=== PATIENT | male | born 1960 | race Asian ===

== ENCOUNTER 2018-05-16 18:14 | Inpatient (IN) ==
--- NOTE | 2018-05-16 18:57 | XRay Report ---
XR chest 1V portable CLINICAL HISTORY: weakness dyspnea COMPARISON STUDY: No previous studies for comparison. FINDINGS: The bones soft tissues and hemidiaphragms are normal. The cardiomediastinal silhouette is n ormal. The lungs are clear. The pulmonary vasculature is normal. IMPRESSION: Negative chest. The above report was generated using voice recognition software. It may contain grammatical, syntax or spelling errors. Electronically signed by: Erasmo Fiore M.D. 05/16/2018 6:56 PM
[2018-05-16 19:27] LABS: Basophils # (auto) 0.01 K/uL (0-0.2); Basophils % (auto) 0.2 %; Eosinophils # (auto) 0.03 K/uL (0-0.5); Eosinophils % (auto) 0.7 %; Hematocrit (blood only) 40.6 % (42-52); Hemoglobin 14.5 g/dL (14.0-18.0); Immature Granulocytes # (auto) 0.01 K/uL (0.00-0.02); Immature Granulocytes % (auto) 0.2 %; Lymphocytes % (auto) 26.6 %; Mean Corpuscular Hgb Conc 35.7 g/dL (32-36); Mean Corpuscular Volume 86.8 fL (80-100); Mean Platelet Volume 9.3 fL (7.4-10.4); Monocytes # (auto) 0.23 K/uL (0.11-0.59); Monocytes % (auto) 5.6 %; Neutrophils # (auto) 2.75 K/uL (1.4-6.5); Neutrophils % (auto) 66.7 %; Platelet Count 164 K/uL (130-400); RDW Coefficient of Variation 12.2 % (11.5-14.5); RDW Standard Deviation 38.9 fL (36.4-46.3); Red Blood Count 4.68 M/uL (4.7-6.1); White Blood Count 4.13 K/uL (4.8-10.8)
--- NOTE | 2018-05-16 19:32 | CT Scan Report ---
CT head/brain wo con CT DOSE: 537.48 mGy.cm HISTORY: Mental status change Stroke evaluation TECHNIQUE: Multiaxial CT images of the head were performed without the use of intravenous contrast. A dose lowering technique was utilized adhering to the principles of ALARA. Comparison: None. Findings: The paranasal sinuses and mastoid air cells are clear. The calvarium and skull base are int act. The ventricles and sulci are within normal limits. There is no mass, hematoma, midline shift, or acute infarct. Impression: No acute intracranial abnormality. The above report was generated using voice recognition software. It may contain grammatical, syntax or spelling errors. Electronically signed by: Erasmo Fiore M.D. 05/16/2018 7:31 PM
[2018-05-16 19:38] LABS: Partial Thromboplastin Time 26.1 Seconds (21.0-31.0); Prothrombin Time 10.3 Seconds (9.0-12.0)
[2018-05-16 19:47] LABS: Alanine Aminotransferase 34 U/L (12-78); Albumin Level 3.7 gm/dl (3.4-5.0); Aspartate Aminotransferase 20 U/L (15-37); BUN Creatinine Ratio 27.9 (10-20); Blood Urea Nitrogen 24 mg/dl (7-18); Calcium 8.7 mg/dl (8.5-10.1); Carbon Dioxide 30 mmol/L (21-32); Chloride 101 mmol/L (98-107); Creatinine Clr Calc Pharmacy 81.4 ml/min; Est GFR (African American) 110.8; Est GFR (Non-African American) 95.6; Glucose 151 mg/dl (70-99); Potassium 3.5 mmol/L (3.5-5.1); Sodium 137 mmol/L (136-145)
[2018-05-16 19:52] LABS: Albumin Globulin Ratio 1.1 (0.9-2); Alkaline Phosphatase 102 U/L (45-117); Bilirubin,Total 1.1 mg/dl (0.2-1); Globulin 3.5 gm/dl (2.5-4.0); Total Protein 7.2 gm/dl (6.4-8.2); Troponin I < 0.015 ng/ml (0-0.045)
--- NOTE | 2018-05-16 20:12 | Emergency Department Note ---
Entered by Brionna Espinal acting as a scribe for History of Present Illness General Chief complaint: Stroke/CVA Symptoms Stated complaint: SLURRED SPEECH, PARALYSIS,NUMBNESS LEFT ARM Source: talent assistant History of Present Illness Onset (ago): day(s) 3 Location: left Pain Consistency: + constant Quality: + other (weakness) Associated symptoms: + other (left hand numbness); no headaches The patient is a 58 year old male who presents to the Emergency Room with complaints of constant left sided weakness that started 3 days ago. The patient reports the left side of his body feels weak and his left hand feels numb. He also complains of problems speaking. He states he wants to say something but is unable to speak. He denies any headache. The patient reports he had similar symptoms a year ago but they were not the same as today. Home Medications Home Medications Medication Instructions Recorded Confirmed Type amlodipine 5 mg PO DAILY 05/16/18 05/16/18 History aspirin [Aspirin Low Dose] 81 mg PO DAILY 05/16/18 05/16/18 History atorvastatin 20 mg PO DAILY 05/16/18 05/16/18 History carvedilol 3.125 mg PO BID 05/16/18 05/16/18 History glimepiride 4 mg PO BID 05/16/18 05/16/18 History losartan-hydrochlorothiazide 1 tab PO DAILY 05/16/18 05/16/18 History Allergies Allergy/AdvReac Type Severity Reaction Status Date / Time No Known Allergies Allergy Unverified 05/16/18 20:51 Past Med/Surg History Medical History Hypertension Social History Preferred Language: Yakut Feels Safe at Home: Yes Smoking Status: Former smoker Review of Systems See HPI for pertinent positives & negatives. and A total of 10 systems reviewed and were otherwise negative Physical Exam Vital Signs Vital Signs - 24 hr 05/16/18 18:19 05/16/18 19:32 05/16/18 20:55 Temperature 36.6 C Temperature Source Oral Sepsis Recent Fever Within 48 Hours No Sepsis New/Unexplained Change in Mental Status No Sepsis Action Taken by Nursing No Action Required Pulse Rate 68 Pulse Rate [Right Finger] 68 65 Respiratory Rate 18 16 15 Respiratory Effort / Characteristics Non-Labored Spontaneous Non-Labored Respiratory Depth Normal Normal Respiratory Pattern Regular Regular Blood Pressure 128/72 Blood Pressure [Left Arm] 162/81 H 158/81 H Blood Pressure Mean 90 Blood Pressure Mean [Left Arm] 108 106 Blood Pressure Position Sitting Blood Pressure Position [Left Arm] Sitting Pulse Oximetry 98 94 96 Oxygen Delivery Method Room Air Room Air Room Air 05/16/18 21:14 Temperature Temperature Source Sepsis Recent Fever Within 48 Hours Sepsis New/Unexplained Change in Mental Status Sepsis Action Taken by Nursing Pulse Rate 74 Pulse Rate [Right Finger] Respiratory Rate 18 Respiratory Effort / Characteristics Respiratory Depth Respiratory Pattern Blood Pressure 161/89 H Blood Pressure [Left Arm] Blood Pressure Mean Blood Pressure Mean [Left Arm] Blood Pressure Position Blood Pressure Position [Left Arm] Pulse Oximetry 97 Oxygen Delivery Method Room Air GENERAL: Awake, alert, well-appearing, in no distress HENT: Normocephalic, atraumatic. Oropharynx unremarkable. EYES: Normal conjunctiva. Sclera non-icteric. NECK: Supple. No nuchal rigidity. RESPIRATORY: Clear to auscultation. No wheezes. Normal respiratory effort. CARDIAC: Normal rate. Normal rhythm. Extremities warm and well perfused. GI: Soft, non-distended. No tenderness to palpation. No rebound or guarding. No masses. RECTAL: Deferred. MUSCULOSKELETAL: Atraumatic. Chest examination reveals no tenderness. There is no CVA tenderness to palpation. LOWER EXTREMITIES: Calves are equal size bilaterally and non-tender. No edema NEURO: Normal sensorium. No sensory or motor deficits noted. No facial droop. No slurred speech, cranial nerves 2-10 intact. No finger to nose or heel to roger ataxia. 5/5 strenght in all extremities. SKIN: Warm and dry. No rash or jaundice noted. Course 182: Past medical records reviewed. The patient was evaluated in room A9A, and a complete history and physical examination were performed. 2003: [facility] agrees to evaluate the patient for further management and care. Consultations Consultation #1: I reviewed the [facility] He agrees to evaluate the patient for further management and care. Time: 20:03 Administered Medications Insulin Aspart (Novolog Flexpen) 0 units SC ACHS GILMAR Stop: 06/15/18 21:28 Last Admin: 05/16/18 21:49 Dose: Not Given Documented by: [id number] Cosigned by: [id number] Discontinued Medications Aspirin (Aspirin) 324 mg PO NOW STA Stop: 05/16/18 20:14 Last Admin: 05/16/18 20:52 Dose: 324 mg Documented by: [id number] Medical Decision Making Differential Diagnosis Etiologies such as metabolic, infection, hypo/hyperglycemia, electrolyte abnormalities, cardiac sources, intracerebral event, toxicologic, neurologic, as well as others were entertained. Medical Records Attestation: I reviewed the patient's medical records. Home Medications Current Medication List: was personally reviewed by me Laboratory Data Attestation: I reviewed the patient's lab results. Result diagrams: 05/16/18 19:15 05/16/18 19:15 Lab Results 05/16/18 05/16/18 05/16/18 Range/Units 19:15 19:15 19:15 WBC 4.13 L (4.8-10.8) K/uL RBC 4.68 L (4.7-6.1) M/uL Hgb 14.5 (14.0-18.0) g/dL Hct 40.6 L (42-52) % MCV 86.8 (80-100) fL MCH 31.0 (25-34) pg MCHC 35.7 (32-36) g/dL RDW Std Deviation 38.9 (36.4-46.3) fL RDW Coeff of Neymar 12.2 (11.5-14.5) % Plt Count 164 (130-400) K/uL MPV 9.3 (7.4-10.4) fL Immature Gran % (Auto) 0.2 % Neut % (Auto) 66.7 % Lymph % (Auto) 26.6 % [place] % (Auto) 5.6 % Eos % (Auto) 0.7 % Baso % (Auto) 0.2 % Immature Gran # (Auto) 0.01 (0.00-0.02) K/uL Neut # (Auto) 2.75 (1.4-6.5) K/uL Lymph # (Auto) 1.10 L (1.2-3.4) K/uL [place] # (Auto) 0.23 (0.11-0.59) K/uL Eos # (Auto) 0.03 (0-0.5) K/uL Baso # (Auto) 0.01 (0-0.2) K/uL PT 10.3 (9.0-12.0) Seconds INR 1.0 (0.9-1.1) APTT 26.1 (21.0-31.0) Seconds PTT Ratio 1.0 Sodium 137 (136-145) mmol/L Potassium 3.5 (3.5-5.1) mmol/L Chloride 101 (98-107) mmol/L Carbon Dioxide 30 (21-32) mmol/L Anion Gap 6.0 (3-11) BUN 24 H (7-18) mg/dl Creatinine 0.86 (0.6-1.4) mg/dl Est Cr Clr Drug Dosing 81.4 ml/min Est GFR ( Amer) 110.8 Est GFR (Non-Af Amer) 95.6 BUN/Creatinine Ratio 27.9 H (10-20) Glucose 151 H (70-99) mg/dl POC Glucose (70-99) Calcium 8.7 (8.5-10.1) mg/dl Magnesium 2.0 (1.8-2.4) mg/dl Total Bilirubin 1.1 H (0.2-1) mg/dl AST 20 (15-37) U/L ALT 34 (12-78) U/L Alkaline Phosphatase 102 (45-117) U/L Troponin I < 0.015 (0-0.045) ng/ml Total Protein 7.2 (6.4-8.2) gm/dl Albumin 3.7 (3.4-5.0) gm/dl Globulin 3.5 (2.5-4.0) gm/dl Albumin/Globulin Ratio 1.1 (0.9-2) Urine Color Urine Appearance (Clear) Urine pH (4.5-7.5) Ur Specific [place] (1.000-1.030) Urine Protein (Negative) Urine Glucose (UA) (Negative) Urine Ketones (Negative) Urine Blood (Negative) Urine Nitrite (Negative) Urine Bilirubin (Negative) Urine Urobilinogen (Negative) Ur Leukocyte Esterase (Negative) 05/16/18 05/16/18 05/16/18 Range/Units 19:42 20:50 21:41 WBC (4.8-10.8) K/uL RBC (4.7-6.1) M/uL Hgb (14.0-18.0) g/dL Hct (42-52) % MCV (80-100) fL MCH (25-34) pg MCHC (32-36) g/dL RDW Std Deviation (36.4-46.3) fL RDW Coeff of Neymar (11.5-14.5) % Plt Count (130-400) K/uL MPV (7.4-10.4) fL Immature Gran % (Auto) % Neut % (Auto) % Lymph % (Auto) % [place] % (Auto) % Eos % (Auto) % Baso % (Auto) % Immature Gran # (Auto) (0.00-0.02) K/uL Neut # (Auto) (1.4-6.5) K/uL Lymph # (Auto) (1.2-3.4) K/uL [place] # (Auto) (0.11-0.59) K/uL Eos # (Auto) (0-0.5) K/uL Baso # (Auto) (0-0.2) K/uL PT (9.0-12.0) Seconds INR (0.9-1.1) APTT (21.0-31.0) Seconds PTT Ratio Sodium (136-145) mmol/L Potassium (3.5-5.1) mmol/L Chloride (98-107) mmol/L Carbon Dioxide (21-32) mmol/L Anion Gap (3-11) BUN (7-18) mg/dl Creatinine (0.6-1.4) mg/dl Est Cr Clr Drug Dosing ml/min Est GFR ( Amer) Est GFR (Non-Af Amer) BUN/Creatinine Ratio (10-20) Glucose (70-99) mg/dl POC Glucose 125 H 102 H (70-99) Calcium (8.5-10.1) mg/dl Magnesium (1.8-2.4) mg/dl Total Bilirubin (0.2-1) mg/dl AST (15-37) U/L ALT (12-78) U/L Alkaline Phosphatase (45-117) U/L Troponin I (0-0.045) ng/ml Total Protein (6.4-8.2) gm/dl Albumin (3.4-5.0) gm/dl Globulin (2.5-4.0) gm/dl Albumin/Globulin Ratio (0.9-2) Urine Color Yellow Urine Appearance Clear (Clear) Urine pH 6.5 (4.5-7.5) Ur Specific [place] 1.014 (1.000-1.030) Urine Protein Negative (Negative) Urine Glucose (UA) Negative (Negative) Urine Ketones Negative (Negative) Urine Blood Negative (Negative) Urine Nitrite Negative (Negative) Urine Bilirubin Negative (Negative) Urine Urobilinogen Negative (Negative) Ur Leukocyte Esterase Negative (Negative) Imaging Data Radiologist's Impression: Radiology results as stated below per my review and the radiologist's interpretation: XR chest 1V portable CLINICAL HISTORY: weakness dyspnea COMPARISON STUDY: No previous studies for comparison. FINDINGS: The bones soft tissues and hemidiaphragms are normal. The cardiomedia stinal silhouette is normal. The lungs are clear. The pulmonary vasculature is normal. IMPRESSION: Negative chest. The above report was generated using voice recognition software. It may contain grammatical, syntax or spelling errors. Electronically signed by: Erasmo Fiore M.D. 05/16/2018 6:[address] head/brain wo con CT DOSE: 537.48 mGy.cm HISTORY: Mental status change Stroke evaluation TECHNIQUE: Multiaxial CT images of the head were performed without the use of intravenous contrast. A dose lowering technique was utilized adhering to the principles of ALARA. Comparison: None. Findings: The paranasal sinuses and mastoid air cells are clear. The calvarium and skull base are intact. The ventricles and sulci are within normal limits. There is no mass, hematoma, midline shift, or acute infarct. Impression: No acute intracranial abnormality. The above report was generated using voice recognition software. It may contain grammatical, syntax or spelling errors. Electronically signed by: Erasmo Fiore M.D. 05/16/2018 7:31 PM ECG Data Attestation: I personally reviewed and interpreted this ECG as follows: Indication: other (stroke symptoms) Rate (beats per minute): 66 Rhythm: normal sinus Findings: + other (early replolarization changes); no PVC, no ST elevation and no acute ischemic change Blood Pressure Blood Pressure Findings: Elevated blood pressure Blood Pressure Disposition: elevated BP felt to be situational MDM Narrative 58-year-old gentleman presenting with slurred speech and left arm numbness and paralysis. Primarily Pakistani Mandarin speaking. Video translation service utilized. Since Wednesday complaining of left-sided numbness predominate of his hand with weakness of left arm and left leg. History of TIA year ago. On aspirin. No other blood thinners. Denies trauma or headache. States he does have difficulty getting out his words. Denying any right-sided symptoms. No facial droop noted or pronator drift. No significant finger to nose ataxia no serafin. Patient is a diabetic. Visiting from [facility]. History of TIA a year ago. CT the head is complete without acute intracranial findings such as bleed or evidence of CVA. I doubt large vessel exclusion. Basic labs and EKG along with chest x-ray completed as well. Chest x-rays unremarkable. Reevaluation patient still complaining of left left-sided weakness although no other objective. Given his risk factors with the diabetes and his complaint could possibly be the small CVA and did discuss with the [facility] hospitalist for admission next up admission. Will likely require MRI for further differentiation and monitoring for resolution of symptomatology. Impression & Plan Left-sided weakness Discharge Plan Visit Data *Final* Discharge Date/Time: 05/16/18 21:14 Chief Complaint: Stroke/CVA Symptoms Stated Complaint: SLURRED SPEECH, PARALYSIS,NUMBNESS LEFT ARM ED Provider: Tejas Hoskins Discharge Problem: Left-sided weakness Patient Disposition: Admitted As Inpatient Discharge Instructions Interventions: ED Discharge Assessment Last Done: 05/16/18 21:14 The jersonibe's documentation has been prepared under my direction and personally reviewed by me in its entirety. I confirm that the note above accurately reflects all work, treatment, procedures, and medical decision making performed by me.
[2018-05-16] MEDS ORDERED: ASPIRIN CHEW 324 MG PO STA (20:13)
--- NOTE | 2018-05-16 20:44 | History & Physical Report ---
Date of Service May 16, 2018 Assessment & Plan (1) Stroke-like symptoms: Presented with left hand numbness and left leg weakness since last wednesday. Thought he was tired but as his symptoms did not improve came today. Initial CT head unremarkable asprin 324mg given in er. admitted for stroke workup MRI head, echo and carotid doppler follow hba1c levels and fasting lipid profile gentle fluids, soft diet until seen by speech. speech evaluation pt/ot Neurology consult in am. Later MRI results came as acute infarct in right dangelo region- will follow official report. added plavix to home aspirin . Increased lipitor to 40mg daily close monitor in tele will allow permissive HTN Present on Admission?: Yes (2) Diabetes: on Glimiperide which will be held started on lantus and iss will monitor will follow hba1c levels Present on Admission?: Yes (3) Hyperlipidemia: on statin lipitor 20mg at home which is increased to 40mg daily will follow FLP. Present on Admission?: Yes (4) Hypertension: on amlodipine, coreg and losartan/hctz at home will give coreg with holding parameters Hold amlodipine and losaartan/hctz to allow for permissive htn. close monitor. Present on Admission?: Yes History of Present Illness Chief Complaint: Left hand numbness and left lower extremity weakness Primary Care Provider: NO PCP This 58-year-old Polish male with past medical history significant for diabetes hypertension and hyperlipidemia presents with stroke like symptoms. Patient states he is from [facility] came to [facility] about 30 years ago. From [place] but working in [place] since last 2 years, he travels up and down. His PCP is in [place]. Since last Wednesday he noticed left hand numbness and weakness in the left lower extremity. He feels like the left lower leg power is reduced. But he still ambulating without any help. When asked why he did not come to the hospital earlier he says he thought his symptoms were from tiredness but it did not go away so he came to the hospital today. Patient says he knows only little Arabic. Translation services help was taken but patient answered most of the questions. Speech is clear. Denies any difficulty swallowing. No headache. No blurred vision. No chest pain or shortness of breath. No cough. No fever and chills. Currently resting comfortably and hemodynamically stable. Denies heavy work in his job. Allergies Allergy/AdvReac Type Severity Reaction Status Date / Time No Known Allergies Allergy Unverified 05/16/18 20:51 Home Medications Home Medications Medication Instructions Recorded Confirmed Type amlodipine 5 mg PO DAILY 05/16/18 05/16/18 History aspirin [Aspirin Low Dose] 81 mg PO DAILY 05/16/18 05/16/18 History atorvastatin 20 mg PO DAILY 05/16/18 05/16/18 History carvedilol 3.125 mg PO BID 05/16/18 05/16/18 History glimepiride 4 mg PO BID 05/16/18 05/16/18 History losartan-hydrochlorothiazide 1 tab PO DAILY 05/16/18 05/16/18 History Past Med/Surg History Medical History Hyperlipidemia Diabetes Hypertension Social History Preferred Language: Mandarin Polish Communication Ability: Effective Supervisor Grinding Required: Yes and Voice Beliefs That Will Affect Care: Cultural Current Living Situation: Spouse Other Information That Helps Us Care for You: No Feels Safe at Home: Yes Safety Concerns: Feels Safe At This Time Smoking Status: Former smoker Hx Alcohol Use: Yes Hx Substance Use: No Review of Systems Constitutional- no fever Eyes- no acute visual changes Pulmonary- no cough, no wheezing, no shortness of breath Cardiac- no chest pain, no palpitations, no dependent edema GI- no nausea, no vomiting, no diarrhea, no melena, - no dysuria, no hematuria Hematologic- no unusual bruising, no unusual bleeding Neuro- no headaches, numbness of left hand and weakness in left lower extremity Psych- no anxiety, no depression Physical Exam Vital Signs (Past 24 Hours): Last Vital Signs Temp 36.6 C 05/16/18 18:19 Pulse 68 05/16/18 19:32 Resp 16 05/16/18 19:32 BP 162/81 H 05/16/18 19:32 Pulse Ox 94 05/16/18 19:32 Physical Exam: General- Not in distress Head- atraumatic Eyes- PERRL, EOMI, anicteric ENT- oropharynx clear Neck- supple, no JVD, no adenopathy,carotids +2/2, no bruits appreciated Lungs- clear to auscultation and percussion Heart- regular rhythm; no murmur, no gallop, no rub appreciated Abdomen- normal bowel sounds, soft, nontender, no masses Extremities- no pretibial edema, no erythema Neuro- alert, oriented x 3; PERRL, EOMI; no facial palsy; no dysarthria; motor 5/5 right extrtemity 4/5 left extremities, Mild pronator drift left upper extremity, finger nose test normal, babinski negative, romberg negative, gait slow. Skin- warm & dry Results & Data Laboratory Results Laboratory Results - last 24 hr 05/16/18 05/16/18 05/16/18 19:15 19:15 19:15 WBC 4.13 L RBC 4.68 L Hgb 14.5 Hct 40.6 L MCV 86.8 MCH 31.0 MCHC 35.7 RDW Std Deviation 38.9 RDW Coeff of Neymar 12.2 Plt Count 164 MPV 9.3 Immature Gran % (Auto) 0.2 Neut % (Auto) 66.7 Lymph % (Auto) 26.6 [place] % (Auto) 5.6 Eos % (Auto) 0.7 Baso % (Auto) 0.2 Immature Gran # (Auto) 0.01 Neut # (Auto) 2.75 Lymph # (Auto) 1.10 L [place] # (Auto) 0.23 Eos # (Auto) 0.03 Baso # (Auto) 0.01 PT 10.3 INR 1.0 APTT 26.1 PTT Ratio 1.0 Sodium 137 Potassium 3.5 Chloride 101 Carbon Dioxide 30 Anion Gap 6.0 BUN 24 H Creatinine 0.86 Est Cr Clr Drug Dosing 81.4 Est GFR ( Amer) 110.8 Est GFR (Non-Af Amer) 95.6 BUN/Creatinine Ratio 27.9 H Glucose 151 H POC Glucose Calcium 8.7 Magnesium 2.0 Total Bilirubin 1.1 H AST 20 ALT 34 Alkaline Phosphatase 102 Troponin I < 0.015 Total Protein 7.2 Albumin 3.7 Globulin 3.5 Albumin/Globulin Ratio 1.1 Urine Color Urine Appearance Urine pH Ur Specific [place] Urine Protein Urine Glucose (UA) Urine Ketones Urine Blood Urine Nitrite Urine Bilirubin Urine Urobilinogen Ur Leukocyte Esterase 05/16/18 05/16/18 05/16/18 19:42 20:50 21:41 WBC RBC Hgb Hct MCV MCH MCHC RDW Std Deviation RDW Coeff of Neymar Plt Count MPV Immature Gran % (Auto) Neut % (Auto) Lymph % (Auto) [place] % (Auto) Eos % (Auto) Baso % (Auto) Immature Gran # (Auto) Neut # (Auto) Lymph # (Auto) [place] # (Auto) Eos # (Auto) Baso # (Auto) PT INR APTT PTT Ratio Sodium Potassium Chloride Carbon Dioxide Anion Gap BUN Creatinine Est Cr Clr Drug Dosing Est GFR ( Amer) Est GFR (Non-Af Amer) BUN/Creatinine Ratio Glucose POC Glucose 125 H 102 H Calcium Magnesium Total Bilirubin AST ALT Alkaline Phosphatase Troponin I Total Protein Albumin Globulin Albumin/Globulin Ratio Urine Color Yellow Urine Appearance Clear Urine pH 6.5 Ur Specific [place] 1.014 Urine Protein Negative Urine Glucose (UA) Negative Urine Ketones Negative Urine Blood Negative Urine Nitrite Negative Urine Bilirubin Negative Urine Urobilinogen Negative Ur Leukocyte Esterase Negative Diagnostic Findings CXR: Negative chest. CT HEAD: No acute intracranial abnormality. ECG Additional Comments: ECG: NSR AT RATE OF 66. NO ACUTE ST CHANGES SEEN Code Status & VTE Plan Code Status FULL VTE Prophylaxis Plan VTE Prophylaxis will be ordered: Yes (1) Diabetes Diabetes mellitus type: type 2 Diabetes mellitus terminal carman insulin use: without terminal carman use Diabetes mellitus complication status: without complication Qualified Code(s): E11.9 - Type 2 diabetes mellitus without complications (2) Hyperlipidemia Hyperlipidemia type: unspecified Qualified Code(s): E78.5 - Hyperlipidemia, unspecified
[2018-05-16 21:06] LABS: Appearance Urine Clear (Clear); Bilirubin Urine Negative (Negative); Blood Urine Negative (Negative); Color Urine Yellow; Glucose Urine UA Negative (Negative); Ketones Urine Negative (Negative); Leukocyte Esterase Urine Negative (Negative); Nitrite Urine Negative (Negative); Protein Urine Negative (Negative); Specific Gravity Urine 1.014 (1.000-1.030); Urobilinogen Urine Negative (Negative); pH Urine 6.5 (4.5-7.5)
[2018-05-16] MEDS ORDERED: ACETAMINOPHEN 325 MG TAB PO PRN (21:29)
[2018-05-16] MEDS ORDERED: POLYETHYLENE (MIRALAX) 17 GM PACK PO PRN (21:29)
[2018-05-16] MEDS ORDERED: NITROGLYCERIN SL 0.4 MG/TAB TAB SL PRN (21:29)
[2018-05-16] MEDS ORDERED: ONDANSETRON INJ 2 MG/ML 2 ML VIAL IV PRN (21:29)
[2018-05-16] MEDS ORDERED: PHARMACIST DISCHARGE MED REC CONSULT PRN (21:29)
[2018-05-16] MEDS: INSULIN ASPART 100 UNITS/ML 3 ML PEN SC SCH (21:49)
[2018-05-16] MEDS ORDERED: CARBOHYDRATES FOR HYPOGLYCEMIA PO PRN (22:15)
[2018-05-16] MEDS ORDERED: GLUCOSE 40% GEL 15 GM TUBE PO PRN (22:15)
[2018-05-16] MEDS ORDERED: GLUCAGON FOR INJ 1 MG VIAL IM PRN (22:15)
[2018-05-16] MEDS ORDERED: DEXTROSE 50% 50 ML SYRINGE IV PRN (22:15)
[2018-05-16] MEDS ORDERED: GLUCOSE 10 TABS/TUBE PO PRN (22:15)
[2018-05-16] MEDS ORDERED: GADOBUTROL 65ML VIAL IV PRN (23:06)
[2018-05-16] MEDS: SODIUM CHLORIDE 0.9% 1000ML 1,000 ML IV SCH (23:32)
[2018-05-16] MEDS: CARVEDILOL 3.125 MG TAB PO SCH (23:32)
[2018-05-16] MEDS ORDERED: LORazepam 1 MG/2 ML VIAL IV PRN (23:56)
[2018-05-17] MEDS ORDERED: THIAMINE HCL 100 MG in SYRINGE 9 ML IV STA (00:31)
[2018-05-17 06:07] LABS: Basophils # (auto) 0.01 K/uL (0-0.2); Basophils % (auto) 0.2 %; Eosinophils # (auto) 0.05 K/uL (0-0.5); Hematocrit (blood only) 39.6 % (42-52); Hemoglobin 14.5 g/dL (14.0-18.0); Lymphocytes # (auto) 1.84 K/uL (1.2-3.4); Lymphocytes % (auto) 38.3 %; Mean Corpuscular Hgb Conc 36.6 g/dL (32-36); Mean Corpuscular Volume 86.8 fL (80-100); Monocytes # (auto) 0.43 K/uL (0.11-0.59); Monocytes % (auto) 8.9 %; Neutrophils # (auto) 2.48 K/uL (1.4-6.5); Neutrophils % (auto) 51.6 %; Platelet Count 157 K/uL (130-400); RDW Coefficient of Variation 12.2 % (11.5-14.5); RDW Standard Deviation 38.9 fL (36.4-46.3); Red Blood Count 4.56 M/uL (4.7-6.1); White Blood Count 4.81 K/uL (4.8-10.8)
[2018-05-17 06:43] LABS: Calcium 8.2 mg/dl (8.5-10.1); Creatinine Clr Calc Pharmacy 92.2 ml/min; Est GFR (African American) 116.6; Est GFR (Non-African American) 100.6; Potassium 3.3 mmol/L (3.5-5.1)
--- NOTE | 2018-05-17 06:53 | Ultrasound Report ---
ULTRASOUND OF THE CAROTID ARTERIES CLINICAL HISTORY: Mental status change. Stroke. COMPARISON STUDY: None. TECHNIQUE: Real-time, grayscale, and color Doppler sonography of the carotid arteries was performed. Imaging reviewed in the transverse and longitudinal planes. NASCET criteria was utilized for stenosis calcification. FINDINGS: There is mild atherosclerotic plaque present . The peak systolic velocity within the right internal carotid artery is 93 cm/sec. The systolic velocity ratio of right internal to common carotid artery is 1.2. The peak systolic velocity within the left internal carotid artery is 84 cm/sec. The systolic velocity ratio left internal to common carotid artery is 0.7. Antegrade flow is seen in the vertebral arteries. The external carotid arteries are patent. Blood pressure in the right arm measured 155 mm/Hg. Blood pressure in the left arm measured 154 mm/H g. IMPRESSION: No evidence of hemodynamically significant carotid stenosis. Electronically signed by: Bobo Avelar M.D. 05/17/2018 6:52 AM
--- NOTE | 2018-05-17 07:00 | Magnetic Resonance Report ---
MR brain wo/w con HISTORY: 58 years-old Male cva, acutely altered mental status with acute strokelike symptoms. Acute left upper and lower extremity weakness for three days. COMPARISON: CT head of same day. TECHNIQUE: Multiplanar multisequence MRI of the brain was obtained both with and without the use of 6 mL Gadavist. FINDINGS: The coin box inspector localizer images demonstrate no gross extracranial abnormality. There is an ovoid area of restricted diffusion with decreased signal on the ADC map involving the rig ht ventral and mid dangelo which measures 12 x 7 x 8 mm on image 7 series 5 compatible with an acute inf arction. No associated hemorrhage or significant mass effect. No additional restricted diffusion iden tified. The corpus callosum, optic chiasm, pituitary and pineal glands appear unremarkable on the sag ittal T1 series. No cerebellar tonsillar herniation. Degenerative changes noted about the imaged cerv ical spine. There is no acute intracranial hemorrhage, midline shift, abnormal extra-axial collections, hydroceph alus or intracranial mass identified. Moderate degree of patchy T2/FLAIR hyperintensities are seen th roughout the white matter of the cerebral hemispheres bilaterally, predominantly within a subcortical distribution. There is no abnormal intra-axial or extra-axial enhancement identified. The major flow voids at the level of the skull base appear to be patent. Mastoid air cells are clear. Mild mucosal thickening of the ethmoid air cells and right maxillary sinus. The skull, soft tissues and orbits are unremarkable. IMPRESSION: 1. Acute appearing right pontine infarction, 12 x 7 x 8 mm. 2. No acute intracranial hemorrhage, midline shift or abnormal extra-axial collections. 3. Moderate T2/FLAIR hyperintensities about the subcortical white matter suggests chronic microvascul ar ischemic changes. 4. No abnormal enhancement. The above report was generated using voice recognition software. It may contain grammatical, syntax o r spelling errors. Dictated: 05/17/2018 6:39 AM Transcribed: 05/17/2018 7:00 AM Martha [id number] [email or web address] Electronically signed by: Warren Camacho M.D. 05/17/2018 7:12 AM
[2018-05-17] MEDS: CLOPIDOGREL BISULFATE 75 MG TAB PO SCH (08:09)
[2018-05-17] MEDS: ATORVASTATIN 40 MG TAB PO SCH (08:10)
[2018-05-17] MEDS: ASPIRIN 81 MG ECTAB PO SCH (08:10)
[2018-05-17] MEDS: CEROVITE ADV FORMULA TAB PO SCH (08:11)
[2018-05-17] MEDS: CARVEDILOL 3.125 MG TAB PO SCH ×2 (08:11→21:23)
[2018-05-17] MEDS: THIAMINE HCL 50 MG TABLET PO SCH (08:11)
[2018-05-17] MEDS: INSULIN GLARGINE SOLOSTAR 100 UNITS/ML 3 ML PEN SC SCH (08:12)
[2018-05-17] MEDS: INSULIN ASPART 100 UNITS/ML 3 ML PEN SC SCH ×4 (08:14→21:34)
[2018-05-17] MEDS ORDERED: POTASSIUM CHLORIDE 10 MEQ TABCR PO STA (08:17)
[2018-05-17 08:29] LABS: Estimated Average Glucose 260 mg/dl; Hemoglobin A1C 10.7 % (4.5-5.6)
[2018-05-17] MEDS ORDERED: hydroCHLOROthiazide 25 MG TAB PO SCH (09:00)
[2018-05-17] MEDS ORDERED: LOSARTAN POTASSIUM 50 MG TAB PO SCH (09:00)
[2018-05-17] MEDS ORDERED: AMLODIPINE BESYLATE 5 MG TAB PO SCH (09:00)
[2018-05-17] MEDS: SODIUM CHLORIDE 0.9% 1000ML 1,000 ML IV SCH (11:27)
--- NOTE | 2018-05-17 13:28 | Neurology Consultation ---
Date of Consultation May 17, 2018 Assessment & Plan (1) Left-sided weakness: 1. MRI brain- R pontine stroke 2. TTE- no ASD 3. carotid doppler- no significant stenosis 4. increase lipitor to 40 mg daily 5. already on aspirin 81 mg, plavix 75 mg added, continue dual therapy x 21 days then stop aspirin and continue plavix for lifetime 6. optimize HTN, HLD, DM LDL <70 7. PT/OT for discharge needs 8. CTA head and neck to evaluation posterior and cerebral circulation- no high grade stenosis 9. ZIO as outpatient follow up with neurology Laura De La Vega PAC schedule 4-6 weeks after discharge Pt seen and examined, dw pt son on phone. Son indicates pt may have had a spell of L arm weakness lasting 1 week several months ago. Pt is noncompliant with meds and diet. Exam notable for mild flattening L NLF.4/5 LUE and 4+/5 LLE with dysmetria Imp Brainstem infarct, dual antiplt tx, tx vascular risk factors. Pt may need dietary consultation. JANELLE Mccall MD Supervising Physician Co-Signing Physician Notes I have seen and discussed above patient with Dr Laura Mccall, neurology History of Present Illness Reason for Consultation: stroke Requesting Physician: Rico Clayton MD Attending Physician: Rico Clayton MD History of Present Illness Kieran is a 58 year old right handed Slovenian male with PMH DM, HTN, HLD presents with stroke like symptoms. He is from [facility] came to [facility] about 30 years ago. He cam from [place] but working in [place] since last 2 years. His PCP is in [place]. Since last Wednesday he noticed left hand numbness and weakness in the left lower extremity. He can ambulating without assistance. When asked why he did not come to the hospital earlier he says he thought his symptoms were from tiredness but it did not go away so he came to the hospital today. He is not fluent in Moroc[place] but does understand. Speech is clear. Denies any difficulty swallowing, headache, vision issues, CP, SOB, abdominal pain. +left arm and leg weakness, numbness tingling. Allergies Allergy/AdvReac Type Severity Reaction Status Date / Time No Known Allergies Allergy Unverified 05/16/18 20:51 Home Medications Home Medications Medication Instructions Recorded Confirmed Type amlodipine 5 mg PO DAILY 05/16/18 05/16/18 History aspirin [Aspirin Low Dose] 81 mg PO DAILY 05/16/18 05/16/18 History atorvastatin 20 mg PO DAILY 05/16/18 05/16/18 History carvedilol 3.125 mg PO BID 05/16/18 05/16/18 History glimepiride 4 mg PO BID 05/16/18 05/16/18 History losartan-hydrochlorothiazide 1 tab PO DAILY 05/16/18 05/16/18 History Patient History Medical History Hyperlipidemia Diabetes Hypertension Social History Communication Ability: Effective Beliefs That Will Affect Care: Cultural Current Living Situation: Spouse Other Information That Helps Us Care for You: No Feels Safe at Home: Yes Safety Concerns: Feels Safe At This Time Smoking Status: Former smoker Hx Alcohol Use: Yes Hx Substance Use: No Physical Exam Vital Signs (Past 24 Hours): Last Vital Signs Temp 36.4 C L 05/17/18 10:42 Pulse 71 05/17/18 10:42 Resp 16 05/17/18 10:42 BP 162/79 H 05/17/18 10:42 Pulse Ox 97 05/17/18 10:42 Physical Exam: Constitutional: appearance nourished, healthy and normal Ears, Nose, Mouth and Throat: mucous membranes moist, no injection and skin normal, eyes normal Cardiovascular: normal S-1 and S-2 and regular rate and rhythm Respiratory: clear to auscultation (CTA) and no rales, ronchi or wheeze Musculoskeletal: no peripheral edema Skin: no stigmata of neurocutaneous disease noted and normal and intact Eyes: extraocular muscles intact (EOMI) and pupils equal, round and reactive to light (PERRL), gross visual wheeler intact NEUROLOGIC EXAMINATION: Mental status: Alert and interactive Oriented to full date and location Oriented to person Speech fluent with no evidence of aphasia Cranial Nerves smile flattening left nasolabial fold, smile unequal, tongue midline Reflexes: Deep tendon reflexes were symmetrical and graded 2/5. Sensory: no deficit to light or cool touch, vibration Coordination: finger to nose with dysmetric movement on the left, dysmetric heel to toe on left Gait/Stance: Posture normal. Gait rises from bed without assistance. tandem gait decreased arm swing on left Motor: slight left pronator drift of out stretched arms with eyes closed. 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, biceps triceps 4+/5, right 5/5, hip flex plantar patellar flex ext left 4+/5, right 5/5 Results & Data Laboratory Results Abnormal lab results 05/16/18 05/16/18 05/16/18 Range/Units 19:15 19:15 19:42 WBC 4.13 L (4.8-10.8) K/uL RBC 4.68 L (4.7-6.1) M/uL Hct 40.6 L (42-52) % MCHC (32-36) g/dL Lymph # (Auto) 1.10 L (1.2-3.4) K/uL Potassium (3.5-5.1) mmol/L BUN 24 H (7-18) mg/dl BUN/Creatinine Ratio 27.9 H (10-20) Glucose 151 H (70-99) mg/dl POC Glucose 125 H (70-99) Hemoglobin A1c (4.5-5.6) % Calcium (8.5-10.1) mg/dl Total Bilirubin 1.1 H (0.2-1) mg/dl Triglycerides (0-150) mg/dl Cholesterol (0-200) mg/dl 05/16/18 05/17/18 05/17/18 Range/Units 21:41 05:53 05:53 WBC (4.8-10.8) K/uL RBC 4.56 L (4.7-6.1) M/uL Hct 39.6 L (42-52) % MCHC 36.6 H (32-36) g/dL Lymph # (Auto) (1.2-3.4) K/uL Potassium 3.3 L (3.5-5.1) mmol/L BUN 20 H (7-18) mg/dl BUN/Creatinine Ratio 26.0 H (10-20) Glucose (70-99) mg/dl POC Glucose 102 H (70-99) Hemoglobin A1c (4.5-5.6) % Calcium 8.2 L (8.5-10.1) mg/dl Total Bilirubin (0.2-1) mg/dl Triglycerides 214 H (0-150) mg/dl Cholesterol 212 H (0-200) mg/dl 05/17/18 05/17/18 05/17/18 Range/Units 05:53 07:01 11:19 WBC (4.8-10.8) K/uL RBC (4.7-6.1) M/uL Hct (42-52) % MCHC (32-36) g/dL Lymph # (Auto) (1.2-3.4) K/uL Potassium (3.5-5.1) mmol/L BUN (7-18) mg/dl BUN/Creatinine Ratio (10-20) Glucose (70-99) mg/dl POC Glucose 115 H 169 H (70-99) Hemoglobin A1c 10.7 H (4.5-5.6) % Calcium (8.5-10.1) mg/dl Total Bilirubin (0.2-1) mg/dl Triglycerides (0-150) mg/dl Cholesterol (0-200) mg/dl Diagnostic Findings TTE- 65-70% no ASD CT head-No acute intracranial abnormality. MRI brain- Acute appearing right pontine infarction, 12 x 7 x 8 mm. No acute intracranial hemorrhage, midline shift or abnormal extra-axial collections. Moderate T2/FLAIR hyperintensities about the subcortical white matter suggests chronic microvascular ischemic changes. No abnormal enhancement. carotid doppler- No evidence of hemodynamically significant carotid stenosis. CTA head-No significant stenosis, occlusion, or aneurysm within the [place]. CTA neck-No evidence of hemodynamically significant carotid stenosis Mild to moderate distal left vertebral artery stenosis just proximal to the PICA origin
[2018-05-17] MEDS ORDERED: OPTIRAY 320 125ml IV PRN (15:09)
--- NOTE | 2018-05-17 15:18 | CT Scan Report ---
CT angio head wo/w HISTORY: pontine stroke evaluate cerebral circulation TECHNIQUE: Multiaxial CT angiography of the head was performed IV contrast: None. Maximum in tensity projection images were also obtained. A dose lowering technique was utilized adhering to the principles of ALARA. COMPARISON: None. FINDINGS: There is no mass, hematoma, midline shift, or acute infarct. Visualized intracranial internet project manager al carotid arteries, distal vertebral arteries, and basilar artery are widely patent. There is no sig nificant stenosis, occlusion, or aneurysm seen within the bilateral ACAs, MCAs, or coal grader. IMPRESSION: No significant stenosis, occlusion, or aneurysm within the [place]. The above report was generated using voice recognition software. It may contain grammatical, syntax or spelling errors. Electronically signed by: Erasmo Fiore M.D. 05/17/2018 3:17 PM
--- NOTE | 2018-05-17 15:26 | CT Scan Report ---
CT angio neck with con CLINICAL HISTORY: pontine stroke evaluate posterior circulation COMPARISON STUDY: None TECHNIQUE: CT angiography was performed from the aortic arch to the skull base. MIP imaging was perfo rmed. The patient was scanned in a dynamic helical fashion during intravenous administration of 115 c c of Optiray 320. A dose lowering technique was utilized adhering to the principles of ALARA. CT DOSE: Technique: CT angiogram of the carotid and vertebral arteries was obtained using intravenous contrast and 3-D reconstruction. NASCET criteria was utilized. Findings: The right carotid revealed no evidence of aneurysm and no evidence of dissection. There is no evidenc e of hemodynamic significant stenosis. There are moderate atheromatous changes the level of the right carotid bulb. The left carotid revealed no evidence of hemodynamic significant stenosis. There is no evidence of an eurysm. There is no evidence of dissection. There are minimal atheromatous changes at the level of th e left carotid bulb. There is no evidence of right vertebral artery stenosis. There is a mild to moderate distal left vert ebral artery stenosis just proximal to the PICA origin. IMPRESSION: 1. No evidence of hemodynamically significant carotid stenosis 2. Mild to moderate distal left vertebral artery stenosis just proximal to the PICA origin Electronically signed by: Bobo Avelar M.D. 05/17/2018 3:24 PM
--- NOTE | 2018-05-17 16:52 | Hospitalist Progress Note ---
Date of Service May 17, 2018 Assessment & Plan (1) Stroke-like symptoms: Acute Right Pontine CVA MRI Brain:Acute appearing right pontine infarction, 12 x 7 x 8 mm. Moderate T2/FLAIR hyperintensities about the subcortical white matter suggests chronic microvascular ischemic changes. Head CTA;No significant stenosis, occlusion, or aneurysm within the [place]. Neck CTA: No evidence of hemodynamically significant carotid stenosis. Mild to moderate distal left vertebral artery stenosis just proximal to the PICA origin ECHO:No evidence of ASD, Mild LVH Continue Aspirin and Plavix for 21 days>>and then Plavix for lifetime Continue Lipitor ZIO patch as outpatient Needs follow up with Neurology in 4-6 weeks Appreciate neurology Input PT/OT Allow permissive HTN in setting of acute CVA (2) Diabetes: on Glimiperide at home Hb A1C: 10.7 Continue lantus, ISS Need to add Metformin upon discharge Monitor BGs (3) Hyperlipidemia: on statin lipitor 20mg at sunshine Lipitor increased to 40mg daily (4) Hypertension: on amlodipine, coreg and losartan/hctz at home Continue Coreg Resume other Hypertensive meds as able Monitor BP DVT Px: SCDs Code Status: Full Code Disposition: PT/OT prior to DC Subjective Patient is seen and examined at bedside Left sided weakness/Numbness improving No new complaints Denies chest pain, SOB, dizziness Physical Exam Vital Signs (Past 24 Hours): Last Vital Signs Temp 36.4 C L 05/17/18 10:42 Pulse 71 05/17/18 10:42 Resp 16 05/17/18 10:42 BP 162/79 H 05/17/18 10:42 Pulse Ox 97 05/17/18 10:42 Physical Exam: Physical Exam: Vitals signs as noted above General Appearance:Moderately built and nourished, no apparent distress Head: normocephalic, Atraumatic Eyes: normal inspection, EOMI Neck: supple, Trachea midline Respiratory/Chest: Normal breath sounds, CTA Cardiovascular: S1, S2, No murmur Abdomen/GI:Soft, Non tender, Bowel sounds present Extremities/Musculoskelatal:normal inspection, no edema Neurologic/Psych:AAOX3, Left UE/LE Motor--4/5 Skin: normal color, warm Results & Data Laboratory Results Short CBC 05/16/18 05/17/18 Range/Units 19:15 05:53 WBC 4.13 L 4.81 (4.8-10.8) K/uL Hgb 14.5 14.5 (14.0-18.0) g/dL Hct 40.6 L 39.6 L (42-52) % Plt Count 164 157 (130-400) K/uL BMP 05/16/18 05/17/18 19:15 05:53 Sodium 137 141 Potassium 3.5 3.3 L Chloride 101 105 Carbon Dioxide 30 29 BUN 24 H 20 H Creatinine 0.86 0.76 Glucose 151 H 98 Calcium 8.7 8.2 L Cardiac Enzymes 05/16/18 Range/Units 19:15 Troponin I < 0.015 (0-0.045) ng/ml Liver Function 05/16/18 Range/Units 19:15 Total Bilirubin 1.1 H (0.2-1) mg/dl AST 20 (15-37) U/L ALT 34 (12-78) U/L Alkaline Phosphatase 102 (45-117) U/L Albumin 3.7 (3.4-5.0) gm/dl Urine 05/16/18 Range/Units 20:50 Urine Color Yellow Urine Appearance Clear (Clear) Urine pH 6.5 (4.5-7.5) Ur Specific [place] 1.014 (1.000-1.030) Urine Protein Negative (Negative) Urine Glucose (UA) Negative (Negative) (1) Diabetes Diabetes mellitus type: type 2 Diabetes mellitus long term acute care registered nurse insulin use: without skilled nursing use Diabetes mellitus complication status: without complication Qualified Code(s): E11.9 - Type 2 diabetes mellitus without complications (2) Hyperlipidemia Hyperlipidemia type: unspecified Qualified Code(s): E78.5 - Hyperlipidemia, unspecified
[2018-05-18 05:57] LABS: Basophils # (auto) 0.01 K/uL (0-0.2); Basophils % (auto) 0.2 %; Eosinophils # (auto) 0.05 K/uL (0-0.5); Eosinophils % (auto) 1.2 %; Hemoglobin 14.1 g/dL (14.0-18.0); Immature Granulocytes # (auto) 0.01 K/uL (0.00-0.02); Immature Granulocytes % (auto) 0.2 %; Lymphocytes # (auto) 1.58 K/uL (1.2-3.4); Lymphocytes % (auto) 38.3 %; Mean Corpuscular Hgb Conc 35.3 g/dL (32-36); Mean Corpuscular Volume 88.1 fL (80-100); Mean Platelet Volume 9.1 fL (7.4-10.4); Monocytes % (auto) 7.3 %; Neutrophils # (auto) 2.17 K/uL (1.4-6.5); Neutrophils % (auto) 52.8 %; Platelet Count 158 K/uL (130-400); RDW Coefficient of Variation 12.2 % (11.5-14.5); RDW Standard Deviation 38.9 fL (36.4-46.3); Red Blood Count 4.54 M/uL (4.7-6.1); White Blood Count 4.12 K/uL (4.8-10.8)
[2018-05-18 06:34] LABS: BUN Creatinine Ratio 26.7 (10-20); Calcium 8.2 mg/dl (8.5-10.1); Creatinine Clr Calc Pharmacy 101.5 ml/min; Est GFR (African American) 121.3; Est GFR (Non-African American) 104.6; Potassium 3.5 mmol/L (3.5-5.1)
[2018-05-18] MEDS: CEROVITE ADV FORMULA TAB PO SCH (07:32)
[2018-05-18] MEDS: CARVEDILOL 3.125 MG TAB PO SCH (07:32)
[2018-05-18] MEDS: ASPIRIN 81 MG ECTAB PO SCH (07:32)
[2018-05-18] MEDS: ATORVASTATIN 40 MG TAB PO SCH (07:32)
[2018-05-18] MEDS: CLOPIDOGREL BISULFATE 75 MG TAB PO SCH (07:32)
[2018-05-18] MEDS: THIAMINE HCL 50 MG TABLET PO SCH (07:32)
[2018-05-18] MEDS: INSULIN ASPART 100 UNITS/ML 3 ML PEN SC SCH ×2 (08:11→12:06)
[2018-05-18] MEDS: INSULIN GLARGINE SOLOSTAR 100 UNITS/ML 3 ML PEN SC SCH (08:12)
--- NOTE | 2018-05-18 12:23 | Hospitalist Progress Note ---
Date of Service May 18, 2018 Assessment & Plan (1) Stroke-like symptoms: Acute Right Pontine CVA MRI Brain:Acute appearing right pontine infarction, 12 x 7 x 8 mm. Moderate T2/FLAIR hyperintensities about the subcortical white matter suggests chronic microvascular ischemic changes. Head CTA;No significant stenosis, occlusion, or aneurysm within the [place]. Neck CTA: No evidence of hemodynamically significant carotid stenosis. Mild to moderate distal left vertebral artery stenosis just proximal to the PICA origin ECHO:No evidence of ASD, Mild LVH Continue Aspirin and Plavix for 21 days>>and then Plavix for lifetime Continue Lipitor ZIO patch as outpatient Needs follow up with Neurology in 4-6 weeks Appreciate neurology Input PT/OT Resume HTN medications Continue current management (2) Diabetes: H/O Noncompliance with meds as per family on Glimiperide at home Hb A1C: 10.7 Continue lantus, ISS Need to add Metformin upon discharge Monitor BGs (3) Hyperlipidemia: on statin lipitor 20mg at home Lipitor increased to 40mg daily (4) Hypertension: on amlodipine, coreg and losartan/hctz at home Continue Coreg Resume other Hypertensive meds as able Monitor BP DVT Px: SCDs Code Status: Full Code Disposition: PT/OTeval done Subjective Patient is seen and examined at bedside Left sided weakness/Numbness improved Offers no other complaints Denies chest pain, SOB, dizziness Plan to discharge home today Physical Exam Vital Signs (Past 24 Hours): Last Vital Signs Temp 36.5 C 05/18/18 07:02 Pulse 70 05/18/18 07:02 Resp 18 05/18/18 07:02 BP 149/73 H 05/18/18 07:02 Pulse Ox 97 05/18/18 07:02 Physical Exam: Physical Exam: Vitals signs as noted above General Appearance:Moderately built and nourished, no apparent distress Head: normocephalic, Atraumatic Eyes: normal inspection, EOMI Neck: supple, Trachea midline Respiratory/Chest: Normal breath sounds, CTA Cardiovascular: S1, S2, No murmur Abdomen/GI:Soft, Non tender, Bowel sounds present Extremities/Musculoskelatal:normal inspection, no edema Neurologic/Psych:AAOX3, Left UE/LE Motor--4/5 Skin: normal color, warm Results & Data Laboratory Results Short CBC 05/18/18 Range/Units 05:36 WBC 4.12 L (4.8-10.8) K/uL Hgb 14.1 (14.0-18.0) g/dL Hct 40.0 L (42-52) % Plt Count 158 (130-400) K/uL [facility] 05/18/18 05:36 Sodium 141 Potassium 3.5 Chloride 108 H Carbon Dioxide 29 BUN 18 Creatinine 0.69 Glucose 105 H Calcium 8.2 L (1) Diabetes Diabetes mellitus type: type 2 Diabetes mellitus fpc insulin use: without fpc use Diabetes mellitus complication status: without complication Qualified Code(s): E11.9 - Type 2 diabetes mellitus without complications (2) Hyperlipidemia Hyperlipidemia type: unspecified Qualified Code(s): E78.5 - Hyperlipidemia, unspecified
[2018-05-18] MEDS ORDERED: STROKE PATIENT DISCHARGE STA (12:33)
--- NOTE | 2018-05-18 12:35 | Discharge Summary ---
Date of Service May 18, 2018 Admission HPI Per Admitting Provider This 58-year-old Maur[place] male with past medical history significant for diabetes hypertension and hyperlipidemia presents with stroke like symptoms. Patient states he is from [facility] came to [facility] about 30 years ago. From [place] but working in [employer] since last 2 years, he travels up and down. His PCP is in [place]. Since last Wednesday he noticed left hand numbness and weakness in the left lower extremity. He feels like the left lower leg power is reduced. But he still ambulating without any help. When asked why he did not come to the hospital earlier he says he thought his symptoms were from tiredness but it did not go away so he came to the hospital today. Patient says he knows only little Greenlandic. Translation services help was taken but patient answered most of the questions. Speech is clear. Denies any difficulty swallowing. No headache. No blurred vision. No chest pain or shortness of breath. No cough. No fever and chills. Currently resting comfortably and he modynamically stable. Denies heavy work in his job. Admission Exam Per Admitting Provider General- Not in distress Head- atraumatic Eyes- PERRL, EOMI, anicteric ENT- oropharynx clear Neck- supple, no JVD, no adenopathy,carotids +2/2, no bruits appreciated Lungs- clear to auscultation and percussion Heart- regular rhythm; no murmur, no gallop, no rub appreciated Abdomen- normal bowel sounds, soft, nontender, no masses Extremities- no pretibial edema, no erythema Neuro- alert, oriented x 3; PERRL, EOMI; no facial palsy; no dysarthria; motor 5/5 right extrtemity 4/5 left extremities, Mild pronator drift left upper extremity, finger nose test normal, babinski negative, romberg negative, gait slow. Skin- warm & dry Principal Diagnosis Discharge Information Discharge Diagnosis Acute Right Pontine CVA Discharge Goals Decrease discomfort,Improve disease control, Improve function Discharge Activity Limitations Per instructions/follow-up Discharge Data Allergies Allergy/AdvReac Type Severity Reaction Status Date / Time No Known Allergies Allergy Unverified 05/16/18 20:51 Consultations 05/16/18 20:06 ED Decision to Admit Stat 05/16/18 21:29 Consult Case Management - Discharge Planning Routine Consult Case Management - Discharge Planning Routine 05/17/18 08:00 Consult Neurology Routine Procedures Performed MRI Brain: Acute appearing right pontine infarction, 12 x 7 x 8 mm. Moderate T2/FLAIR hyperintensities about the subcortical white matter suggests chronic microvascular ischemic changes. Head CTA: No significant stenosis, occlusion, or aneurysm within the [place]. Neck CTA: No evidence of hemodynamically significant carotid stenosis. Mild to moderate distal left vertebral artery stenosis just proximal to the PICA origin ECHO: No evidence of ASD, Mild LVH Ordered Studies 05/16/18 18:37 CT head/brain wo con Stat 05/16/18 21:29 MR brain wo/w con Routine US carotid doppler BI Routine 05/17/18 14:07 CT angio head wo/w Routine CT angio neck with con Routine Hospital Course (1) Stroke-like symptoms: Acute Right Pontine CVA MRI Brain:Acute appearing right pontine infarction, 12 x 7 x 8 mm. Moderate T2/FLAIR hyperintensities about the subcortical white matter suggests chronic microvascular ischemic changes. Head CTA;No significant stenosis, occlusion, or aneurysm within the [place]. Neck CTA: No evidence of hemodynamically significant carotid stenosis. Mild to moderate distal left vertebral artery stenosis just proximal to the PICA origin ECHO:No evidence of ASD, Mild LVH Continue Aspirin and Plavix for 21 days>>and then Plavix for lifetime Continue Lipitor ZIO patch as outpatient Needs follow up with Neurology in 4-6 weeks Appreciate neurology Input PT/OT Resume HTN medications Continue current management (2) Diabetes: H/O Noncompliance with meds as per family on Glimiperide at home Hb A1C: 10.7 Continue lantus, ISS Need to add Metformin upon discharge Monitor BGs (3) Hyperlipidemia: on statin lipitor 20mg at home Lipitor increased to 40mg daily (4) Hypertension: on amlodipine, coreg and losartan/hctz at home Continue Coreg Resume other Hypertensive meds as able Monitor BP DVT Px: SCDs Code Status: Full Code Disposition: PT/OTeval done Total Time Total Time Spent Total Time Spent (In Minutes): 42 minutes Total Time Includes: Examination of the Patient, Discharge Planning, Medication Reconciliation, Communication With Other Providers and Other Discharge Plan Discharge Items Patient Disposition: Home - Home Health Services Reason For Visit: STROKE LIKE SYMPTOMS Discharge Diagnosis: Acute Right Pontine CVA Discharge Goals: Decrease discomfort, Improve disease control and Improve function Activity: Per 'Additional Instructions' section Exercise/Sports: Gradually increase as tolerated Non-emergency contact: Primary Care Provider and Neurologist Call non-emergency contact if: you have any medication questions, your symptoms worsen, your pain is not controlled, your pain is worsening, your pain is unusual for you, your pain is concerning for you and you have a fever Follow-up/Referrals: PCP,NO [Primary Care Provider] - Diet: Carb Consistent or DM2 and Heart Healthy Addtl Provider Instructions: Follow up with your Primary Care Physician in [place] in 1 week Follow up with your Neurologist Laura De La Vega PA-C in 4-6 weeks Get [employer] (ZIO patch) as outpatient to rule out arrhythmias Continue Plavix and Aspirin for 3 weeks (21 days) and after that stop aspirin and continue plavix for lifetime Start taking Metformin for better diabetes control--start taking Metformin 500mg daily for 1-2 weeks, if no side effects, can increase it to twice a day Seek immediate medical attention if your symptoms reoccur or worsen Risk Factors for Stroke: You can reduce your chances of stroke by working with your medical provider to adopt a healthy lifestyle. Some specific ways to lower your chance of stroke are: * If you are a smoker, now is the time to stop smoking cigarettes * If you are diabetic, improve the control of your blood sugars * Avoid excessive amounts of alcohol * Control high blood pressure * Lose weight if you are overweight * Be sure to lead an active lifestyle * Eat a healthy diet low in salt, cholesterol and fat You should know about other risk factors for stroke that you are unable to control. These include: * Age 55 years or older * Male gender * Certain racial groups: , or / * Family History of Stroke, Mini stroke or Heart Attack * Sickle Cell Disease Follow Up: It is important for you to keep your follow up appointments with your medical provider. Who to Call and When: Medical Emergencies: Call 911 immediately if you experience any of the following warning signs and symptoms of Stroke: * Sudden numbness or weakness of the face, arm or leg, especially on one side of the body * Sudden confusion, trouble speaking or understanding * Sudden trouble seeing in one or both eyes * Sudden trouble walking, dizziness, loss of balance or coordination * Sudden severe headache with no cause Do not delay calling 911 if you experience any warning signs or symptoms of a stroke. Delay in seeking medical attention may affect what treatments can be given to you. . Prescriptions: New atorvastatin 40 mg Tablet 40 mg PO QAM 30 Days Qty: 30 RF: 2 clopidogrel 75 mg Tablet 75 mg PO QAM 30 Days Qty: 30 RF: 2 metformin 500 mg tablet 500 mg PO UD Qty: 60 RF: 0 Continued amlodipine 5 mg Tablet 5 mg PO DAILY RF: 0 aspirin [Aspirin Low Dose] 81 mg Tablet,Delayed Release (Dr/Ec) 81 mg PO DAILY RF: 0 carvedilol 3.125 mg Tablet 3.125 mg PO BID RF: 0 losartan-hydrochlorothiazide 100-25 mg Tablet 1 tab PO DAILY RF: 0 glimepiride 4 mg Tablet 4 mg PO BID RF: 0 Discontinued atorvastatin 20 mg Tablet 20 mg PO DAILY RF: 0 Stand-Alone Forms: Medications to Prevent Stroke, My [facility] Krames/Other Patient Handouts: Stroke Sx, Stroke Taking Meds, Stroke Risk Factors, Stroke Prevent Healthy Lifestyle Discharge Orders: Discharge Order (Routine); Ordered 05/18/18 Ordered By: Rico Clayton Admission Data Admit Date/Time: 05/16/18 20:41 Attending Provider: Rico Clayton Admit Provider: Shankar Grace Primary Care Provider: PCP,NO Other Providers: Shankar Grace ; Britta Daniels ; Laura De La Vega ; oRdney Garcia ; Laura Mccall ; April Aguilera ; Gustavo Herrera Service: Telemetry Other Interventions: Discharge Summary Assessment (RN) Last Done: 05/18/18 13:10 Pending Studies at Discharge: No DC Date/Time DO NOT enter until pt leaves facility: 05/18/18 13:35
--- NOTE | 2018-05-18 16:26 | Pharmacy Report ---
Pharmacist Stroke Counseling - Date of Service May 18, 2018 - Scope: Pharmacy has been consulted to provide medication discharge counseling for this patient admitted with ischemic stroke as per the Pharmacist Discharge Counseling for Stroke Patients Protocol. - Medications on Discharge: Home Medications Medication Instructions Recorded Confirmed amlodipine 5 mg PO DAILY 05/16/18 05/16/18 aspirin [Aspirin Low Dose] 81 mg PO DAILY 05/16/18 05/16/18 carvedilol 3.125 mg PO BID 05/16/18 05/16/18 glimepiride 4 mg PO BID 05/16/18 05/16/18 losartan-hydrochlorothiazide 1 tab PO DAILY 05/16/18 05/16/18 New Rx's Medication Instructions Recorded atorvastatin 40 mg PO QAM 30 Days #30 tab 05/18/18 clopidogrel 75 mg PO QAM 30 Days #30 tab 05/18/18 metformin 500 mg PO UD #60 tab 05/18/18 - Action: The above medications, specifically ones for stroke treatment/prophylaxis, have been reviewed in detail with the patient and/or patient guest experience representative(s) prior to discharge. This includes indication, common adverse reactions, drug interactions, and medication administration. Medication counseling has been employed using the teach-back method to ensure understanding. - Outcome: The patient and/or patient guest experience representative(s) have demonstrated understanding of the medications. Please note, they are aware that the pharmacist will call them within 72 hours post-discharge to confirm that the appropriate medications are being taken and answer any further medication related questions the patient might have at that time. Contact information Individual to be contacted: patient Phone number: [phone] Best time to call: anytime Additional comments: Patient familiar with aspirin and atorvastatin as he was taking them prior to this admission. I stressed that his dose of atorvastatin was increased to 40 mg daily. I also extensively discussed addition of plavix to regimen and stressed the importance of taking both ASA + plavix x 21 days, then stopping ASA and continuing plavix indefinitely. Patient read back instructions. Thank you for allowing pharmacy to be involved in the care of this patient. Please call [phone] or [phone] with any additional questions
--- NOTE | 2018-05-20 12:18 | Pharmacy Report ---
Pharmacist Post D/C Phone Note - Phone Note: Date of phone call: May 20, 2018. Individual with whom pharmacist spoke to: SIS GARCIA The following questions were reviewed during the phone call with responses listed below each: Can you tell me the medications that you are currently taking as well as when and how you take each medication? -See Table Below When have you missed any doses of your medications? - no What side effects are you having from your medications, specifically, the new medications you were started on? - none - I reviewed side effects of aspirin & clopidogrel What questions do you have about your medications? - none What problems are you having obtaining your medications? - none When is your next appointment with your primary care doctor? - next week Additional comments: - Patient aware to increase atorvastatin to 40mg and has done so, and will only take aspirin + clopidogrel x 21 days, then only clopidogrel indefinitely. As per the Pharmacist Discharge Counseling for Stroke Patients Protocol, this phone call has been completed within 72 hours of discharge. Thank you for allowing us to be involved in the care of this patient. - Home Medications: Home Medications Medication Instructions Recorded Confirmed amlodipine 5 mg PO DAILY 05/16/18 05/16/18 aspirin [Aspirin Low Dose] 81 mg PO DAILY 05/16/18 05/16/18 carvedilol 3.125 mg PO BID 05/16/18 05/16/18 glimepiride 4 mg PO BID 05/16/18 05/16/18 losartan-hydrochlorothiazide 1 tab PO DAILY 05/16/18 05/16/18 New Rx's Medication Instructions Recorded atorvastatin 40 mg PO QAM 30 Days #30 tab 05/18/18 clopidogrel 75 mg PO QAM 30 Days #30 tab 05/18/18 metformin 500 mg PO UD #60 tab 05/18/18
== END 2018-05-18 13:35 | disposition home or self-care (01) | DRG 65 ==
LOC: ED 18:14 → SUATTDRO 20:41 → 2S 20:41